=== PATIENT | male | born 1995 | race African-American/Black ===

== ENCOUNTER 2024-07-02 08:11 | Emergency (ER) | payer MEDICAID, OTHER ==
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
[2024-07-02] MEDS ORDERED: ONDANSETRON 4 MG/2 ML VIAL ONE (08:29)
[2024-07-02 09:16] LABS: ALT/SGPT 29 U/L (16-61); AST/SGOT 15 U/L (15-37); Albumin 3.7 g/dL (3.4-5.0); Albumin/Globulin Ratio 1.1 (1.1-1.8); Alkaline Phosphatase 132 U/L (45-117); Anion Gap 10.4 mEq/L (5.0-15.0); BUN Blood Urea Nitrogen 7 mg/dL (7-18); Bicarbonate 31 mEq/L (21-32); Bilirubin Total 0.5 mg/dL (0.2-1.0); Globulin 3.3 g/dL (2.3-3.5); Glomerular Filtration Rate 83 ml/min (=/>90); Glucose Level 118 mg/dL (74-106); Lipase 45 U/L (13-75); Magnesium 1.9 mg/dL (1.6-2.4); Potassium 3.4 mEq/L (3.5-5.1); Sodium Level 141 mEq/L (136-145); Troponin High Sensitivity 3.9 pg/mL (<58.9)
[2024-07-02 09:18] LABS: Bilirubin Direct < 0.2 mg/dL (0-0.2); Bilirubin Indirect, Calculated 0.3 mg/dL (0.2-0.8)
[2024-07-02 09:28] LABS: Absolute Eosinophils 0.3 K/uL (0-0.5); Absolute Monocytes 0.7 K/uL (0.1-1.3); Absolute Neutrophil 8.7 K/uL (1.8-8.0); Basophils % 0.4 % (0-1.3); Eosinophils % 2.7 % (0-4.4); Hematocrit 40.4 % (39.6-49.0); Lymphocytes % 17.2 % (15.3-44.8); MCH 30.9 pg (27.0-35.0); MCHC 34.8 g/dL (32.0-36.0); MCV 88.7 fL (80-100); MPV 9.2 fL (7.6-11.3); Monocytes % 5.7 % (3.3-12.3); Platelets 225 thou/uL (152-406); RBC Red Blood Cell Count 4.55 M/uL (4.33-5.43); Red Cell Distribution Width 12.5 % (12.1-15.2)
--- NOTE | 2024-07-02 09:58 | RAD REPORT ---
Procedure: Chest Single View HISTORY: Chest pain COMPARISON: none FINDINGS: The lungs appear clear of acute infiltrate. No significant pleural effusion noted. The heart is normal size. IMPRESSION: No acute abnormality is displayed.
--- NOTE | 2024-07-02 10:08 | ER ---
Nurse's Notes [facility] Name: Michelle Stewart Age: 29 yrs Sex: Male : 1995 Arrival Date: 07/02/2024 Time: 08:11 Bed 17 Private MD: Diagnosis: Chest pain, gastritis Presentation: 07/02 08:22 Chief complaint: Patient states: Chest pain and vomiting that began last night. PT ss reports he was seen at another ER 6 months ago for same complaints and was told that everything looked ok. Coronavirus screen: Client denies travel out of the [place] in the last 14 days. Ebola Screen: Patient denies exposure to infectious person. Patient denies travel to an Ebola-affected area in the 21 days before illness onset. Initial Sepsis Screen: Does the patient meet any 2 criteria? No. Patient's initial sepsis screen is negative. Does the patient have a suspected source of infection? No. Patient's initial sepsis screen is negative. Risk Assessment: Do you want to hurt yourself or someone else? Patient reports no desire to harm self or others. Onset of symptoms was July 01, 2024. 08:22 Method Of Arrival: Ambulatory ss 08:22 Acuity: [place] 3 ss Historical: - Allergies: 08:23 No Known Allergies; ss - Home Meds: 08:23 None [Active]; ss - PMHx: 08:23 None; ss - PSHx: 08:23 None; ss - Immunization history:: Adult Immunizations up to date. - Infectious Disease History:: Denies. - Social history:: Smoking status: Reported history of juuling and/or vaping. Screenin:50 [facility] ED Fall Risk Assessment (Adult) History of falling in the last 3 months, mb9 including since admission No falls in past 3 months (0 pts) Confusion or Disorientation No (0 pts) Intoxicated or Sedated No (0 pts) Impaired Gait No (0 pts) Mobility Assist Device Used No (0 pt) Altered Elimination No (0 pt) Score/Fall Risk Level 0 - 2 = Low Risk Oriented to surroundings, Maintained a safe environment, Educated pt \T\ family on fall prevention, incl call for assistance when getting out of bed. Abuse screen: Denies threats or abuse. Nutritional screening: No deficits noted. Tuberculosis screening: No symptoms or risk factors identified. Assessment: 08:49 General: Appears in no apparent distress. Behavior is calm, cooperative. Pain: mb9 Complains of pain in chest Pain does not radiate. Pain began suddenly. Neuro: [place] Agitation-Sedation Scale (RASS): 0 - Alert and Calm Level of Consciousness is awake, alert, obeys commands, Oriented to person, place, time, situation, Appropriate for age. Cardiovascular: Heart tones S1 S2 present Patient's skin is warm and dry. Cardiovascular: Reports chest pain. Respiratory: Airway is patent Respiratory effort is even, unlabored, Respiratory pattern is regular, symmetrical, Breath sounds are clear bilaterally. GI: Abdomen is flat, non-distended, Bowel sounds present X 4 quads. Abd is soft and non tender X 4 quads. Reports nausea, vomiting. : No signs and/or symptoms were reported regarding the genitourinary system. EENT: No signs and/or symptoms were reported regarding the EENT system. Derm: Skin is pink, warm \T\ dry. Musculoskeletal: Range of motion: intact in all extremities. 10:20 Reassessment: Patient and/or family updated on plan of care and expected duration. Pain mb9 level reassessed. Patient is alert, oriented x 3, equal unlabored respirations, skin warm/dry/pink. Patient states feeling better. Patient states symptoms have improved. Vital Signs: 08:22 BP 137 / 84; Pulse 78; Resp 16; Temp 97.8(O); Pulse Ox 99% on R/A; Weight 81.65 kg; ss Height 5 ft. 10 in. ; Pain 7/10; 10:19 BP 128 / 78; Pulse 74; Resp 18; Pulse Ox 100% on R/A; mb9 08:22 Body Mass Index 25.83 (81.65 kg, 177.8 cm) ss 08:22 Pain Scale: Adult ss ED Course: 08:13 Patient arrived in ED. cj3 08:23 Triage completed. ss 08:23 Arm band placed on right wrist. ss 08:25 EKG done, by ED staff, reviewed by Wilma Singh MD. mb9 08:27 Seble Vega RN is Primary Nurse. mb9 08:32 Wilma Singh MD is Attending Physician. sp3 08:49 Initial lab(s) drawn, by sc, sent to lab. Inserted saline lock: 20 gauge in right mb9 antecubital area, using aseptic technique. Blood collected. Flushed with 10 mL NS. 08:51 Placed in gown. Bed in low position. Call light in reach. Side rails up X 1. Provided mb9 Education on: press call light if needing anything. Client placed on continuous cardiac and pulse oximetry monitoring. NIBP monitoring applied. surveillance monitor on. 09:45 XRAY Chest (1 view) In Process Unspecified. EDMS 10:20 No provider procedures requiring assistance completed. IV discontinued, intact, mb9 bleeding controlled, No redness/swelling at site. Pressure dressing applied. Administered Medications: 08:49 Drug: Ondansetron IVP 4 mg IVP once; over 2 minutes Route: IVP; Site: right antecubital;mb9 09:07 Follow up: Response: No adverse reaction mb9 10:10 Drug: GI Cocktail without - (Maalox PO 30 ml, Lidocaine Mucous Membrane 2 % 15 mb9 ml) PO once Route: PO; 10:19 Follow up: Response: No adverse reaction mb9 Medication: 10:20 VIS not applicable for this client. mb9 Outcome: 10:07 Discharge ordered by . sp3 10:20 Discharged to home ambulatory, mb9 10:20 Condition: stable 10:20 Discharge instructions given to patient, Instructed on discharge instructions, follow up and referral plans. Demonstrated understanding of instructions, follow-up care, medications, Prescriptions given X 1, 10:20 Patient left the ED. mb9 Signatures: Dispatcher [employer] EDMS Shanta Richter RN RN Wilma Singh MD MD sp3 Seble Vega RN RN mb9 Layla Rae 3 Corrections: (The following items were deleted from the chart) 08:33 08:22 Chief complaint: Patient states: Chest pain that began last night. ss
--- NOTE | 2024-07-02 10:08 | EDPHYS ---
Physician Documentation [facility] Name: Michelle Stewart Age: 29 yrs Sex: Male : 1995 Arrival Date: 07/02/2024 Time: 08:11 Bed 17 Private MD: ED Physician Wilma Singh HPI: 07/02 09:25 This 29 yrs old Black Male presents to ER via Ambulatory with complaints of Chest Pain. sp3 09:25 29-year-old male with history of gastritis presents to the ED with chief complaint sp3 recurrent gastritis, burping and chest pain symptoms. Patient also vapes. He denies any shortness of breath, fever or cough. Patient was evaluated at [place] [facility] for similar symptoms 1 month ago. Currently patient has epigastric pain extending into his lower neck consistent with his prior reflux symptoms. Patient denies headache, shortness of breath, abdominal pain, diarrhea, back pain, bleeding, melena, or any other signs or symptoms on ROS at this time.. Historical: - Allergies: 08:23 No Known Allergies; ss - Home Meds: 08:23 None [Active]; ss - PMHx: 08:23 None; ss - PSHx: 08:23 None; ss - Immunization history:: Adult Immunizations up to date. - Infectious Disease History:: Denies. - Social history:: Smoking status: Reported history of juuling and/or vaping. ROS: 09:26 Constitutional: Negative for fever, chills, and weight loss, Eyes: Negative for injury, sp3 pain, redness, and discharge, ENT: Negative for injury, pain, and discharge, Neck: Negative for injury, pain, and swelling, Respiratory: Negative for shortness of breath, cough, wheezing, and pleuritic chest pain, Back: Negative for injury and pain, MS/Extremity: Negative for injury and deformity, Skin: Negative for injury, rash, and discoloration, Neuro: Negative for headache, weakness, numbness, tingling, and seizure, Psych: Negative for depression, anxiety, suicide ideation, homicidal ideation, and hallucinations, Allergy/Immunology: Negative for hives, rash, and allergies, Endocrine: Negative for neck swelling, polydipsia, polyuria, polyphagia, and marked weight changes, Hematologic/Lymphatic: Negative for swollen nodes, abnormal bleeding, and unusual bruising, 09:26 All other systems are negative, Exam: 09:26 Constitutional: This is a well developed, well nourished patient who is awake, alert, sp3 and in no acute distress. Head/Face: Normocephalic, atraumatic. Eyes: Pupils equal round and reactive to light, extra-ocular motions intact. Lids and lashes normal. Conjunctiva and sclera are non-icteric and not injected. Cornea within normal limits. Periorbital areas with no swelling, redness, or edema. ENT: Nares patent. No nasal discharge, no septal abnormalities noted. External auditory canals are clear. Oropharynx with no redness, swelling, or masses, exudates, or evidence of obstruction, uvula midline. Mucous membranes moist. Neck: Trachea midline, no thyromegaly or masses palpated, and no cervical lymphadenopathy. Supple, full range of motion without nuchal rigidity, or vertebral point tenderness. No Meningismus. Chest/axilla: Normal chest wall appearance and motion. Nontender with no deformity. No lesions are appreciated. Cardiovascular: Regular rate and rhythm with a normal S1 and S2. No gallops, murmurs, or rubs. Normal PMI, no JVD. No pulse deficits. Respiratory: Lungs have equal breath sounds bilaterally, clear to auscultation and percussion. No rales, rhonchi or wheezes noted. No increased work of breathing, no retractions or nasal flaring. Abdomen/GI: Soft, non-tender, with normal bowel sounds. No distension or tympany. No guarding or rebound. No evidence of tenderness throughout. Back: No spinal tenderness. No costovertebral tenderness. Full range of motion. Skin: Warm, dry with normal turgor. Normal color with no rashes, no lesions, and no evidence of cellulitis. MS/ Extremity: Pulses equal, no cyanosis. Neurovascular intact. Full, normal range of motion. Neuro: Awake and alert, GCS 15, oriented to person, place, time, and situation. Cranial nerves II-XII grossly intact. Motor strength 5/5 in all extremities. Sensory grossly intact. Cerebellar exam normal. Normal gait. Psych: Awake, alert, with orientation to person, place and time. Behavior, mood, and affect are within normal limits. 09:26 ECG was reviewed by the Attending Physician. EKG demonstrates normal sinus rhythm at 80 bpm with normal intervals, normal QRS, normal axis, nonspecific ST/T changes without evidence of acute ischemia. Vital Signs: 08:22 BP 137 / 84; Pulse 78; Resp 16; Temp 97.8(O); Pulse Ox 99% on R/A; Weight 81.65 kg; ss Height 5 ft. 10 in. ; Pain 7/10; 10:19 BP 128 / 78; Pulse 74; Resp 18; Pulse Ox 100% on R/A; mb9 08:22 Body Mass Index 25.83 (81.65 kg, 177.8 cm) ss 08:22 Pain Scale: Adult ss MDM: 08:33 Medical Screening Exam initiated sp3 10:07 Data reviewed: vital signs, nurses notes, lab test result(s), EKG, radiologic studies. sp3 ED course: 29-year-old male with gastritis versus musculoskeletal pain versus GERD versus pleurisy versus other. I am not highly suspicious of acute coronary syndrome, aortic pathology, PE or any other critical process including sepsis. Vital signs remain normal. GI cocktail has helped. Full workup negative. Will safely discharge patient home on Protonix and PCP follow-up.. 07/02 08:33 Order name: Basic Metabolic Panel; Complete Time: 09:58 3 07/02 08:33 Order name: CBC with Diff; Complete Time: 09:58 3 07/02 08:33 Order name: LFT's; Complete Time: 09:58 07/02 08:33 Order name: Magnesium; Complete Time: 09:58 3 07/02 08:33 Order name: Troponin HS; Complete Time: 09:58 07/02 08:33 Order name: Lipase; Complete Time: 09:58 07/02 08:33 Order name: XRAY Chest (1 view); Complete Time: 10:05 07/02 08:33 Order name: Cardiac monitoring; Complete Time: 08:34 3 07/02 08:33 Order name: EKG - Nurse/Tech; Complete Time: 08:34 3 07/02 08:33 Order name: IV Saline Lock; Complete Time: 08:36 3 07/02 08:33 Order name: Labs collected and sent; Complete Time: 08:36 3 07/02 08:33 Order name: O2 Per Protocol; Complete Time: 08:34 3 07/02 08:33 Order name: O2 Sat Monitoring; Complete Time: 08:34 sp3 07/02 09:04 Order name: Labs - recollect needed: recollect lavender top; Complete Time: 09:22 bd Administered Medications: 08:49 Drug: Ondansetron IVP 4 mg IVP once; over 2 minutes Route: IVP; Site: right antecubital;mb9 09:07 Follow up: Response: No adverse reaction mb9 10:10 Drug: GI Cocktail without - (Maalox PO 30 ml, Lidocaine Mucous Membrane 2 % 15 mb9 ml) PO once Route: PO; 10:19 Follow up: Response: No adverse reaction mb9 Disposition Summary: 07/02/24 10:07 Discharge Ordered Notes: Location: Home sp3 Condition: Stable sp3 Diagnosis - Chest pain, gastritis sp3 Followup: sp3 - With: Private Physician - When: Upon discharge from the Emergency Department - Reason: Continuance of care Discharge Instructions: - Discharge Summary Sheet sp3 - Gastritis, Adult sp3 Forms: - Medication Reconciliation Form sp3 - Antibiotic Education sp3 - Prescription Opioid Use sp3 - Patient Portal Instructions sp3 - Leadership Thank You Letter sp3 Prescriptions: - Protonix 40 mg Oral Tablet - take 1 tablet ORAL route once daily; 30 tablet; Refills: 0, Product Selection sp3 Permitted Signatures: Dispatcher [employer] EDMS Rach Claudio Shelby, RN RN ss Wilma Singh MD MD sp3 Seble Vega RN RN mb9 Corrections: (The following items were deleted from the chart) 08:34 08:34 Chest Single View+[email or web address] ordered. EDMS EDMS
[2024-07-02] MEDS ORDERED: LIDOCAINE VISCOUS 2% 10ML ORAL SOLN ONE (10:12)
[2024-07-02] MEDS ORDERED: MAGNES/ALUMIN/SIMET 30ML UCUP ONE (10:12)
[2024-07-02 10:35] VITALS: TEMP 97.8
[2024-07-02 10:41] VITALS: BP 128/78; O2SAT 100
== END 2024-07-02 10:20 | disposition home or self-care (01) ==
LOC: ER 08:11
DX: K29.70 Gastritis, unspecified, without bleeding (principal)
CPT/HCPCS: 93005; 85025; 80048; 36415; 83735; 80076; 84484; 83690; 71045; 96374; 99285; J2405